=== PATIENT | male | born 1975 | race Caucasian/White ===

== ENCOUNTER 2019-08-08 08:58 | Emergency (ER) | payer BC ==
[2019-08-08 09:04] VITALS: BP 112/80; PULSE 78; RESP 18; TEMP 98
--- NOTE | 2019-08-08 09:14 | ED ---
Fall HPI - General Chief Complaint: Fall Stated Complaint: Fall, arm injury Time Seen by Provider: 08/08/19 09:05 Source: patient, RN notes reviewed Mode of arrival: ambulatory Limitations: no limitations - History of Present Illness Initial Comments: 43-year-old male presents emergency Department with chief complaint right elbow pain. Patient states that he was walking in to his house and states that he tripped. Patient states that he fell onto his right elbow onto concrete status. Patient is left-hand dominant. Denies any prior fractures of his right arm. Denies any head injury no loss conscious. - Related Data Home Medications Medication Instructions Recorded Confirmed No Known Home Medications 08/08/19 08/08/19 Allergies Allergy/AdvReac Type Severity Reaction Status Date / Time No Known Allergies Allergy Verified 08/08/19 09:08 Review of Systems ROS Statement: Those systems with pertinent positive or pertinent negative responses have been documented in the HPI. ROS Other: All systems not noted in ROS Statement are negative. Past Medical History Past Medical History: No Reported History History of Any Multi-Drug Resistant Organisms: None Reported Past Surgical History: Ear Surgery Additional Past Surgical History / Comment(s): tubes in ears as adults Past Psychological History: No Psychological Hx Reported Smoking Status: Current every day smoker Past Alcohol Use History: None Reported Past Drug Use History: None Reported General Exam Limitations: no limitations General appearance: alert, in no apparent distress Head exam: Present: atraumatic, normocephalic, normal inspection Neck exam: Present: normal inspection, full ROM. Absent: tenderness, m eningismus, lymphadenopathy Respiratory exam: Present: normal lung sounds bilaterally. Absent: respiratory distress, wheezes, rales, rhonchi, stridor Cardiovascular Exam: Present: regular rate, normal rhythm, normal heart sounds. Absent: systolic murmur, diastolic murmur, rubs, gallop, clicks Extremities exam: Present: other (Right elbow limited range of motion tenderness diffusely the right elbow there is small area of ecchymosis there is no proximal humeral tenderness or distal forearm tenderness radial pulses equal bilaterally) Neurological exam: Present: alert Course Vital Signs 08/08/19 09:01 Temperature 98.0 F Pulse Rate 78 Respiratory 18 Rate Blood Pressure 112/80 O2 Sat by Pulse 98 Oximetry Procedures - Orthopedic Splinting/Casting Injury #1 Side: right Upper Extremity Injury Location: long arm, elbow Upper Extremity Immobilizer: posterior splint, synthetic pre-padded splint Medical Decision Making - Medical Decision Making 43-year-old male presents to the ER for fall right elbow pain. X-rays were obtained which shows nonvisualized fracture though he has pathological fat pads and will be splinted for suspected radial head fracture. Patient will be discharged and follow-up with orthopedics. Disposition Clinical Impression: Fall, Fracture of radial head, right, closed Disposition: HOME SELF-CARE Condition: Stable Instructions (If sedation given, give patient instructions): Arm Fracture in Adults (ED) Additional Instructions: Please return to the Emergency Department if symptoms worsen or any other concerns. Is patient prescribed a controlled substance at d/c from ED?: No Referrals: None,Stated [Primary Care Provider] - 1-2 days Ronni Mathews DO [Doctor of Osteopathic Medicine] - 1-2 days Time of Disposition: 09:53
--- NOTE | 2019-08-08 09:44 | XR ---
EXAMINATION TYPE: XR elbow complete RT DATE OF EXAM: 08/08/2019 CLINICAL HISTORY: pain TECHNIQUE: Frontal, lateral and oblique images of the right elbow are obtained. COMPARISON: None. FINDINGS: Virtually nondisplaced radial head fracture with pathologic fat pads identified. No additio nal fractures identified at this time. The overlying soft tissue appears unremarkable. IMPRESSION: Virtually nondisplaced radial head fracture with pathologic fat pads identified. ICD 10 closed FRACTURE, INITIAL EVALUATION
[2019-08-08] MEDS ORDERED: HYDROcodone/APAP 7.5-325MG 1 EACH TAB PO ONE (09:50)
[2019-08-08] MEDS ORDERED: ACET/COD 300 MG/30 MG STARTER PACK 6 TAB BTL PO STA (09:52)
== END 2019-08-08 10:16 | disposition home or self-care (01) ==
LOC: EC 08:58
DX: S52.124A Nondisplaced fracture of head of right radius, initial encounter for closed fracture (principal); F17.200 Nicotine dependence, unspecified, uncomplicated; W01.0XXA Fall on same level from slipping, tripping and stumbling without subsequent striking against object, initial encounter; Y93.01 Activity, walking, marching and hiking; Y92.009 Unspecified place in unspecified non-institutional (private) residence as the place of occurrence of the external cause
CPT/HCPCS: 29105; 99283

== ENCOUNTER 2023-06-27 09:20 | Emergency (ER) | payer BC ==
[2023-06-27 09:39] VITALS: BP 123/86; PULSE 63; RESP 18; TEMP 98.2
[2023-06-27] MEDS ORDERED: ACET/COD 300 MG/30 MG STARTER PACK 6 TAB BTL PO STA (10:22)
--- NOTE | 2023-06-27 10:23 | ED ---
ENT HPI - General Chief complaint: Dental/Oral Stated complaint: L Face Tooth Abscess Time Seen by Provider: 06/27/23 09:43 Source: patient, RN notes reviewed Mode of arrival: ambulatory Limitations: no limitations - History of Present Illness Initial comments: This a 47-year-old male presents emergency Department chief complaint of left- sided dental pain, swelling. He states that bad tooth for a while states that it recent started bothering him. He states that her drainage no fevers or chills no difficulty swallowing. - Related Data Previous Rx's Medication Instructions Recorded Ciprofloxacin Ophth Oint [Ciloxan 1 applic RIGHT EYE QID 5 Days #1 12/22/22 0.3% Ophth Oint] dispenser cefTRIAXone [Rocephin] 2,000 mg IVP Q24HR #42 each 12/22/22 Amoxic-Pot Clav 875-125Mg 1 tab PO Q12HR #20 tab 06/27/23 [Augmentin 875-125] Ibuprofen [Motrin] 800 mg PO Q6HR #30 tab 06/27/23 Allergies Allergy/AdvReac Type Severity Reaction Status Date / Time No Known Allergies Allergy Verified 06/27/23 09:39 Review of Systems ROS Statement: Those systems with pertinent positive or pertinent negative responses have been documented in the HPI. ROS Other: All systems not noted in ROS Statement are negative. Past Medical History Past Medical History: No Reported History History of Any Multi-Drug Resistant Organisms: None Reported Past Surgical History: Ear Surgery Additional Past Surgical History / Comment(s): tubes in ears as adult Past Psychological History: No Psychological Hx Reported Smoking Status: Current every day smoker Past Alcohol Use History: None Reported Past Drug Use History: Marijuana - Past Family History Mother Family Medical History: Hyperlipidemia General Exam Limitations: no limitations General appearance: alert, in no apparent distress Head exam: Present: atraumatic, normocephalic, normal inspection Eye exam: Present: normal appearance, PERRL, EOMI. Absent: scleral icterus, conjunctival injection, periorbital swelling ENT exam: Present: mucous membranes moist. Absent: normal exam, normal oropharynx Neck exam: Present: normal inspection, full ROM. Absent: tenderness, meningismus, lymphadenopathy Respiratory exam: Present: normal lung sounds bilaterally. Absent: respiratory distress, wheezes, rales, rhonchi, stridor Cardiovascular Exam: Present: regular rate, normal rhythm, normal heart sounds. Absent: systolic murmur, diastolic murmur, rubs, gallop, clicks Course Vital Signs 06/27/23 06/27/23 09:35 10:34 Temperature 98.2 F 98.2 F Pulse Rate 63 63 Respiratory 18 18 Rate Blood Pressure 123/86 123/86 O2 Sat by Pulse 98 98 Oximetry Disposition Clinical Impression: Dental abscess Disposition: HOME SELF-CARE Condition: Stable Instructions (If sedation given, give patient instructions): Dental Abscess (ED) Additional Instructions: Please return to the Emergency Department if symptoms worsen or any other concerns. Prescriptions: Amoxic-Pot Clav 875-125Mg [Augmentin 875-125] 1 tab PO Q12HR #20 tab Ibuprofen [Motrin] 800 mg PO Q6HR #30 tab Is patient prescribed a controlled substance at d/c from ED?: No Referrals: None,Stated [Primary Care Provider] - 1-2 days Time of Disposition: 10:23
== END 2023-06-27 10:35 | disposition home or self-care (01) ==
LOC: EC 09:20
DX: K04.7 Periapical abscess without sinus (principal); F17.200 Nicotine dependence, unspecified, uncomplicated; F12.90 Cannabis use, unspecified, uncomplicated
CPT/HCPCS: 99282